=== PATIENT | female | born 1970 | race African-American/Black ===

== ENCOUNTER 2016-12-03 14:52 | Emergency (ER) | payer BC ==
[~2016-12-03] VITALS: Ht 157.5 cm; Wt 74.8 kg
[~2016-12-03 14:52] MED LIST: CIPROFLOXACIN500 M1 PO; CRUTCHES MISCELL; HUMALOG100 UNIT/1 SUBQ; LANTUS SUBQ; MACROBID 100 M100 M1 PO; NOVOLOG100 UNIT/1 SUBQ; PRAVACHOL40 MG PO; QUINAPRIL 20 MG20 MG PO; TORADOL 10 MG T10 MG PO
[2016-12-03] MEDS ORDERED: OXYCODONE HCL 55 MG PO (15:09)
== END 2016-12-03 15:40 | disposition home or self-care (01) ==
LOC: ER 14:52
DX: S90.01XA Contusion of right ankle, initial encounter (principal); I10 Essential (primary) hypertension; E78.5 Hyperlipidemia, unspecified; E11.9 Type 2 diabetes mellitus without complications; Z88.8 Allergy status to other drugs, medicaments and biological substances; Z88.0 Allergy status to penicillin; X58.XXXA Exposure to other specified factors, initial encounter; Y93.89 Activity, other specified; Y92.89 Other specified places as the place of occurrence of the external cause; Y99.8 Other external cause status